=== PATIENT | male | born 1940 | race Caucasian/White ===

== ENCOUNTER 2016-06-07 02:23 | Emergency (ER) | payer MEDICARE ==
--- NOTE | 2016-06-08 07:39 | ER ---
ADMIT: 06/07/2016 RM/LOC: ER [facility] MR#: [id number] [address] [id number] [address] [place] [address] Emergency Room Report SEX: M AGE: 75 : 1940 DATE: 06/07/2016 HISTORY OF PRESENT ILLNESS: The patient is a 75-year-old male with past medical history of angioedema, diabetes, hypertension, and status post open heart surgery and valve replacement, came to the ER with chief complaint of submandibular area swelling and mild difficulty swallowing for the last 14 hours. The patient states this is very similar to all the previous attacks of angioedema for which he always gets epinephrine IM 0.3 mg because the Benadryl and other medications does not work on him. The patient denies any intubation for this reason. The patient denies any shortness of breath or difficulty breathing, but the patient states he feels some tightness in the neck and throat. PHYSICAL EXAMINATION: VITAL SIGNS: The patient has stable vitals. GENERAL: There is no drooling. The patient is not in respiratory distress. HEAD AND NECK: There is mild swelling of the submandibular area without any tenderness, trachea is midline. MOUTH: There is no swelling of the tongue or lips, but there is mild swelling of the uvula. The rest of the physical exam is noncontributory. The patient received Decadron IM 10 mg and also Benadryl 50 mg IM. The patient was reexamined and he stated that the swelling has not resolved and only epinephrine could resolve the swelling less than half an hour. Considering mild swelling of the submandibular area and subjective feeling of the patient of "getting tighter," although the patient has no obvious respiratory distress. The patient received a dose of epinephrine 0.3 mg IM. On recheck of the patient, he stated he feels better and the swelling is going down. The patient was offered admission for observation and he refused it multiple times. The patient states he refuses it and he could be seen up by outside facility if needed. The patient received the prescription for EpiPen, which he states he bring from [place] with himself. The patient was discharged to home against medical advice, which was admission for observation. Juvenal Rivera MD/ clarke JOB #: [id number] CC: Juvenal Rivera MD, Attending Physician Aram Carrera MD, Family Physician
== END 2016-06-07 05:40 | disposition home or self-care (01) ==
LOC: ER 02:23
DX: T78.3XXA Angioneurotic edema, initial encounter (principal); E11.9 Type 2 diabetes mellitus without complications; I10 Essential (primary) hypertension; Z95.2 Presence of prosthetic heart valve; Z79.82 Long term (current) use of aspirin; Z79.84 Long term (current) use of oral hypoglycemic drugs; Z79.899 Other long term (current) drug therapy; Z98.890 Other specified postprocedural states

== ENCOUNTER → 2016-07-04 | Outpatient (CLI) | payer MEDICARE | END | disposition home or self-care (01) | LOC: RAD.S 13:55 | DX: R06.02 Shortness of breath (principal); J47.9 Bronchiectasis, uncomplicated; R91.1 Solitary pulmonary nodule; Z98.890 Other specified postprocedural states ==